=== PATIENT | female | born 1985 | race Caucasian/White ===

== ENCOUNTER 2016-07-23 15:52 | Emergency (ER) | payer OTHER ==
[~2016-07-23] VITALS: Ht 157.5 cm; Wt 107.0 kg
[~2016-07-23 15:52] MED LIST: ABILIFY10 MG PO; ABILIFY5 MG PO; ADVIL200 MG PO; ATIVAN1 MG PO; BACTRIM,SEPT1 TABLET PO; BENTYL10 MG PO; BUPROPION XL150 MG PO; BUPROPION XL300 MG PO; CABERGOLINE0.5 MG PO; CIPRO250 MG PO; CIPRO500 MG PO; COGENTIN0.5 MG PO; COLACE100 MG PO; EFFEXOR XR150 MG PO; EFFEXOR XR37.5 MG PO; EFFEXOR XR75 MG PO; ENDOCET 5-3251 EACH PO; FLOMAX0.4 MG PO; IBUPROFEN800 MG PO; KEFLEX250 MG/5 M PO; KEFLEX500 MG PO; LEXAPRO5 MG PO; LICE COMPLETE1 EACH TP; LO-DOSE ASPIRIN81 M1 PO; LORTAB 5-325 M1 EACH PO; MIRALAX17 GM PO; MOTRIN600 MG PO; MOTRIN800 MG PO; Motrin PO; NAPROSYN375 MG PO; NAPROSYN500 MG PO; NOHOMEMEDS; NORCO 5/3251 TABLET PO; NORCO 7.5/321 TABLET PO; PEN-VEE K,VEET500 MG PO; PERCOCET 5/31 TABLET PO; PRENATAL TABLE1 EAC3 PO; PYRIDIUM200 MG PO; Percocet 5/325,Endoc PO; RISPERDAL0.5 MG PO; RISPERDAL4 MG PO; RISPERIDONE4 MG PO; TRAZODONE HCL50 MG PO; TYLENOL EXTRA500 MG PO; Tylenol Extra Streng PO; ULTRACET1 TABLET PO; ULTRAM50 MG PO; VIBRAMYCIN100 MG PO; WELLBUTRIN SR150 MG PO; WELLBUTRIN XL150 MG PO; WELLBUTRIN XL300 MG PO; WELLBUTRIN75 MG PO; ZOFRAN ODT4 MG PO; ZOFRAN4 MG PO; ZOLOFT50 MG PO; ZOLPIDEM TARTRA10 MG PO
[2016-07-23 18:49] LABS: HEMATOCRIT 34.7 % (36.0-46.0); MCH 27.8 PG (29.0-34.0); MCHC 32.6 G/DL (30.0-36.0); MCV 85.3 FL (83-99); MEAN PLAT.VOLUME 9.5 uM^3 (9.5-12.4); PLATELET COUNT 322 K/uL (156-360); RBC DIS.WIDTH-CV 13.1 % (11.8-14.6); RBC DIS.WIDTH-SD 40.5 % (39-53); RED BLOOD COUNT 4.07 M/uL (3.80-5.20)
[2016-07-23] MEDS ORDERED: RISPERIDONE4 MG PO (18:58)
[2016-07-23] MEDS ORDERED: BUSPAR10 MG PO (18:58)
[2016-07-23 19:04] LABS: CHLORIDE 105 mEq/L (99-109); POTASSIUM 3.7 mEq/L (3.7-5.4); SODIUM 137 mEq/L (136-147)
[2016-07-23 19:06] LABS: GLUCOSE 94 mg/dL (70-99)
[2016-07-23 19:07] LABS: ANION GAP 8 MEQ/L (2-14)
[2016-07-23 19:08] LABS: TOTAL BILIRUBIN 0.2 mg/dL (0.0-1.0)
[2016-07-23 19:09] LABS: ALKALINE PHOSPHATASE 120 IU/L (3-129)
[2016-07-23 19:10] LABS: GFR ESTIMATE (CALCULATED) > 59 mL/min/
[2016-07-23 19:11] LABS: TROP-I INTERPRETATION NEGATIVE; TROPONIN-I < 0.01 ng/mL (0.0-0.30); UREA NITROGEN (BUN) 10 mg/dL (9-23)
[2016-07-23 19:19] LABS: QUANTITATIVE HCG < 4.0 MIU/ML
[2016-07-23 21:53] LABS: TROP-I INTERPRETATION NEGATIVE; TROPONIN-I < 0.01 ng/mL (0.0-0.30)
[2016-07-23 22:08] VITALS: BP 112/64
== END 2016-07-23 22:21 | disposition home or self-care (01) ==
LOC: EME 15:52
PROVIDERS: Physician Assistant
DX: R07.9 Chest pain, unspecified (principal); I10 Essential (primary) hypertension; Z87.442 Personal history of urinary calculi
CPT/HCPCS: 71020; 80053; 84484; 84702; 85027; 93005; 99281; 99283

== ENCOUNTER 2016-08-10 16:20 | Emergency (ER) | payer OTHER ==
[~2016-08-10] VITALS: Ht 157.5 cm; Wt 108.2 kg
[~2016-08-10 16:20] MED LIST changes: +BUSPAR10 MG PO
[2016-08-10 16:54] LABS: ADD MIUA? YES; BILIRUBIN NEGATIVE; BLOOD NEGATIVE; COLOR YELLOW ((YELLOW)); GLUCOSE (STRIP) NEGATIVE; KETONES NEGATIVE; LEUKOCYTES LARGE; NITRITE NEGATIVE; PROTEIN (STRIP) 100; SPECIFIC GRAVITY 1.019 (1.000-1.030)
[2016-08-10 16:56] LABS: INTERNAL CONTROL VALID? YES
[2016-08-10 17:35] LABS: EPITHELIAL CELLS 1+ /HPF; RED BLOOD CELLS 0-5 /HPF (0-5); WHITE BLOOD CELLS 30-40 /HPF (0-5)
[2016-08-10 17:36] LABS: AMORPHOUS PHOSPHATE CRYSTALS 1+; BACTERIA 2+ /HPF; CASTS NONE SEEN /LPF; CRYSTALS PRESENT; MUCUS NONE SEEN /LPF; UCUL ADDED? YES
[2016-08-10] MEDS ORDERED: BACTRIM,SEPT1 TABLET PO (18:24)
[2016-08-10] MEDS ORDERED: MOTRIN600 MG PO (18:24)
[2016-08-10 18:51] VITALS: BP 118/72
== END 2016-08-10 18:54 | disposition home or self-care (01) ==
LOC: EME 16:20
DX: N39.0 Urinary tract infection, site not specified (principal); I10 Essential (primary) hypertension; Z87.442 Personal history of urinary calculi
CPT/HCPCS: 81003; 84703; 87086; 99281; 99284

== ENCOUNTER 2016-08-25 17:57 | Emergency (ER) | payer OTHER ==
[~2016-08-25] VITALS: Ht 157.5 cm; Wt 90.9 kg
[2016-08-25 18:51] LABS: HEMATOCRIT 32.8 % (36.0-46.0); MCH 28.3 PG (29.0-34.0); MCHC 33.2 G/DL (30.0-36.0); MCV 85.2 FL (83-99); MEAN PLAT.VOLUME 8.9 uM^3 (9.5-12.4); PLATELET COUNT 288 K/uL (156-360); RBC DIS.WIDTH-CV 13.1 % (11.8-14.6); RBC DIS.WIDTH-SD 39.9 % (39-53); RED BLOOD COUNT 3.85 M/uL (3.80-5.20)
[2016-08-25 19:00] LABS: CHLORIDE 106 mEq/L (99-109); SODIUM 139 mEq/L (136-147)
[2016-08-25 19:02] LABS: GLUCOSE 103 mg/dL (70-99)
[2016-08-25 19:03] LABS: ANION GAP 8 MEQ/L (2-14)
[2016-08-25 19:06] LABS: GFR ESTIMATE (CALCULATED) > 59 mL/min/
[2016-08-25 19:07] LABS: UREA NITROGEN (BUN) 15 mg/dL (9-23)
[2016-08-25 19:12] LABS: TROP-I INTERPRETATION NEGATIVE; TROPONIN-I < 0.01 ng/mL (0.0-0.30)
[2016-08-25 21:07] VITALS: BP 106/64
== END 2016-08-25 21:11 | disposition home or self-care (01) ==
LOC: EME 17:57
DX: M94.0 Chondrocostal junction syndrome [Tietze] (principal)
CPT/HCPCS: 71020; 80048; 84484; 85027; 93005; 99281; 99284; J1885

== ENCOUNTER 2016-09-20 22:49 | Emergency (ER) | payer OTHER ==
[~2016-09-20] VITALS: Ht 157.5 cm; Wt 110.7 kg
[2016-09-21 00:33] VITALS: BP 100/64
[2016-09-21] MEDS ORDERED: FIORICET 50-301 EACH PO (21:00)
[2016-09-21] MEDS ORDERED: ZOFRAN ODT4 MG PO (21:00)
== END 2016-09-21 00:36 | disposition home or self-care (01) ==
LOC: EME → EDBD 22:49 → EME 09-21 00:36
DX: S06.0X0A Concussion without loss of consciousness, initial encounter (principal); M54.2 Cervicalgia; W10.9XXA Fall (on) (from) unspecified stairs and steps, initial encounter; E66.9 Obesity, unspecified; Z68.41 Body mass index [BMI] 40.0-44.9, adult
CPT/HCPCS: 70450; 72125; 99281; 99284

== ENCOUNTER 2016-09-21 18:49 | Emergency (ER) | payer OTHER ==
[~2016-09-21] VITALS: Ht 157.5 cm; Wt 108.8 kg
[2016-09-21] MEDS ORDERED: FIORICET 50-301 EACH PO (21:00)
[2016-09-21] MEDS ORDERED: ZOFRAN ODT4 MG PO (21:00)
[2016-09-21 21:08] VITALS: BP 108/44
== END 2016-09-21 21:08 | disposition home or self-care (01) ==
LOC: EME → EDBD 18:49 → EME 21:08
DX: S06.0X0A Concussion without loss of consciousness, initial encounter (principal); W10.9XXA Fall (on) (from) unspecified stairs and steps, initial encounter
CPT/HCPCS: 99281; 99284

== ENCOUNTER 2016-10-05 15:54 | Emergency (ER) | payer OTHER ==
[~2016-10-05] VITALS: Ht 157.5 cm; Wt 107.4 kg
[~2016-10-05 15:54] MED LIST changes: +FIORICET 50-301 EACH PO
[2016-10-05 17:42] LABS: MCH 26.8 PG (29.0-34.0); MCHC 31.5 G/DL (30.0-36.0); PLATELET COUNT 311 K/uL (156-360); RBC DIS.WIDTH-SD 39.8 % (39-53); WHITE BLOOD COUNT 7.9 K/uL (4.1-10.2)
[2016-10-05 17:52] LABS: CHLORIDE 109 mEq/L (99-109); POTASSIUM 4.4 mEq/L (3.7-5.4); SODIUM 141 mEq/L (136-147)
[2016-10-05 17:54] LABS: GLUCOSE 89 mg/dL (70-99)
[2016-10-05 17:55] LABS: ANION GAP 8 MEQ/L (2-14)
[2016-10-05 17:56] LABS: TOTAL BILIRUBIN 0.2 mg/dL (0.0-1.0)
[2016-10-05 17:58] LABS: ALKALINE PHOSPHATASE 121 IU/L (3-129); GFR ESTIMATE (CALCULATED) > 59 mL/min/
[2016-10-05 17:59] LABS: UREA NITROGEN (BUN) 12 mg/dL (9-23)
[2016-10-05 18:01] LABS: LIPASE 11 U/L (1.0-51.0); TROP-I INTERPRETATION NEGATIVE; TROPONIN-I < 0.01 ng/mL (0.0-0.30)
[2016-10-05 18:10] LABS: QUANTITATIVE HCG < 4.0 MIU/ML
[2016-10-05] MEDS ORDERED: ZOFRAN4 MG PO (18:17)
[2016-10-05 18:27] LABS: ADD MIUA? YES; BILIRUBIN NEGATIVE; BLOOD SMALL; COLOR YELLOW ((YELLOW)); GLUCOSE (STRIP) NEGATIVE; KETONES NEGATIVE; LEUKOCYTES MODERATE; NITRITE NEGATIVE; PROTEIN (STRIP) NEGATIVE; SPECIFIC GRAVITY 1.015 (1.000-1.030); UROBILINOGEN 0.2 MG/DL (0.2-1.0)
[2016-10-05 18:32] LABS: BACTERIA RARE /HPF; EPITHELIAL CELLS 1+ /HPF; MUCUS TRACE /LPF; RED BLOOD CELLS 0-5 /HPF (0-5); UCUL ADDED? YES
[2016-10-05 19:00] VITALS: BP 120/51
== END 2016-10-05 19:01 | disposition home or self-care (01) ==
LOC: EME 15:54
PROVIDERS: Physician Assistant Medical
DX: R11.0 Nausea (principal); E03.9 Hypothyroidism, unspecified; Z87.442 Personal history of urinary calculi
CPT/HCPCS: 71020; 80053; 81003; 83690; 84484; 84702; 85027; 87086; 93005; 99281; 99284

== ENCOUNTER 2017-02-14 16:37 | Emergency (ER) | payer OTHER ==
[~2017-02-14] VITALS: Ht 157.5 cm; Wt 115.2 kg
[2017-02-14 20:47] VITALS: BP 117/52
== END 2017-02-14 20:47 | disposition home or self-care (01) ==
LOC: EME 16:37
DX: S43.401A Unspecified sprain of right shoulder joint, initial encounter (principal); W19.XXXA Unspecified fall, initial encounter; Y93.E1 Activity, personal bathing and showering
CPT/HCPCS: 73030; 99281; 99283

== ENCOUNTER 2017-02-23 19:58 | Emergency (ER) | payer OTHER ==
[~2017-02-23] VITALS: Ht 157.5 cm; Wt 116.2 kg
[2017-02-23] MEDS ORDERED: TRAZODONE HCL50 MG PO (20:43)
[2017-02-23 20:46] LABS: HEMOGLOBIN 10.8 G/DL (11.9-15.5); MCH 27.4 PG (29.0-34.0); MCHC 32.7 G/DL (30.0-36.0); MCV 83.8 FL (83-99); PLATELET COUNT 307 K/uL (156-360); RBC DIS.WIDTH-CV 13.5 % (11.8-14.6); RBC DIS.WIDTH-SD 41.1 % (39-53); RED BLOOD COUNT 3.94 M/uL (3.80-5.20); WHITE BLOOD COUNT 7.9 K/uL (4.1-10.2)
[2017-02-23 20:59] LABS: CHLORIDE 108 mEq/L (99-109); POTASSIUM 3.7 mEq/L (3.7-5.4); SODIUM 140 mEq/L (136-147)
[2017-02-23 21:01] LABS: GLUCOSE 95 mg/dL (70-99)
[2017-02-23 21:05] LABS: CREATININE 0.8 mg/dL (0.6-1.3); GFR ESTIMATE (CALCULATED) > 59 mL/min/
[2017-02-23 21:06] LABS: UREA NITROGEN (BUN) 16 mg/dL (9-23)
[2017-02-23 21:22] LABS: TROP-I INTERPRETATION NEGATIVE; TROPONIN-I < 0.01 ng/mL (0.0-0.30)
[2017-02-23 21:29] LABS: ALBUMIN 3.9 g/dL (3.2-4.8)
[2017-02-23 21:32] LABS: TOTAL PROTEIN 6.9 g/dL (6.4-8.3)
[2017-02-23 21:33] LABS: TOTAL BILIRUBIN 0.2 mg/dL (0.0-1.0)
[2017-02-23 21:35] LABS: ALKALINE PHOSPHATASE 103 IU/L (3-129)
[2017-02-23 21:37] LABS: AST (GOT) 17 IU/L (2-34)
[2017-02-23 21:38] LABS: ALT (GPT) 11 IU/L (3-49); LIPASE 14 U/L (1.0-51.0)
[2017-02-23 22:12] VITALS: BP 133/75
== END 2017-02-23 22:13 | disposition home or self-care (01) ==
LOC: EME 19:58
PROVIDERS: Physician Assistant
DX: J10.1 Influenza due to other identified influenza virus with other respiratory manifestations (principal); R07.9 Chest pain, unspecified; R10.13 Epigastric pain; E03.9 Hypothyroidism, unspecified; F32.9 Major depressive disorder, single episode, unspecified; F41.9 Anxiety disorder, unspecified; Z87.442 Personal history of urinary calculi
CPT/HCPCS: 71046; 80048; 80076; 83690; 84484; 85027; 87502; 93005; 99281; 99284

== ENCOUNTER 2017-03-17 19:16 | Emergency (ER) | payer OTHER ==
[~2017-03-17] VITALS: Ht 157.5 cm; Wt 116.8 kg
[2017-03-17 21:11] LABS: HEMOGLOBIN 11.1 G/DL (11.9-15.5); MCH 27.5 PG (29.0-34.0); MCHC 32.6 G/DL (30.0-36.0); MCV 84.2 FL (83-99); PLATELET COUNT 286 K/uL (156-360); RBC DIS.WIDTH-CV 14.1 % (11.8-14.6); RBC DIS.WIDTH-SD 43.1 % (39-53); RED BLOOD COUNT 4.04 M/uL (3.80-5.20); WHITE BLOOD COUNT 9.4 K/uL (4.1-10.2)
[2017-03-17 21:19] LABS: CHLORIDE 104 mEq/L (99-109); POTASSIUM 3.8 mEq/L (3.7-5.4); SODIUM 139 mEq/L (136-147)
[2017-03-17 21:21] LABS: GLUCOSE 86 mg/dL (70-99); PTT 30.4 SEC (25-37)
[2017-03-17 21:24] LABS: CREATININE 0.8 mg/dL (0.6-1.3); GFR ESTIMATE (CALCULATED) > 59 mL/min/
[2017-03-17 21:25] LABS: UREA NITROGEN (BUN) 20 mg/dL (9-23)
[2017-03-17] MEDS ORDERED: NAPROXEN500 MG PO (22:46)
[2017-03-17 22:55] VITALS: BP 139/63
== END 2017-03-17 22:57 | disposition home or self-care (01) ==
LOC: EME 19:16
DX: M79.661 Pain in right lower leg (principal); E03.9 Hypothyroidism, unspecified; F32.9 Major depressive disorder, single episode, unspecified; F41.9 Anxiety disorder, unspecified
CPT/HCPCS: 71046; 80048; 85027; 85610; 85730; 93971; 99281; 99284

== ENCOUNTER 2017-03-22 20:51 | Emergency (ER) | payer OTHER ==
[~2017-03-22] VITALS: Ht 157.5 cm; Wt 118.9 kg
[~2017-03-22 20:51] MED LIST changes: +NAPROXEN500 MG PO
[2017-03-22 21:38] LABS: APPEARANCE SL.HAZY ((CLEAR)); BILIRUBIN NEGATIVE; BLOOD NEGATIVE; COLOR YELLOW ((YELLOW)); GLUCOSE (STRIP) NEGATIVE; KETONES NEGATIVE; LEUKOCYTES LARGE; NITRITE NEGATIVE; PROTEIN (STRIP) 30; SPECIFIC GRAVITY 1.023 (1.000-1.030); UROBILINOGEN 0.2 MG/DL (0.2-1.0)
[2017-03-22 21:50] LABS: HEMATOCRIT 32.2 % (36.0-46.0); HEMOGLOBIN 10.5 G/DL (11.9-15.5); MCH 27.1 PG (29.0-34.0); MCHC 32.6 G/DL (30.0-36.0); MCV 83.2 FL (83-99); PLATELET COUNT 256 K/uL (156-360); RBC DIS.WIDTH-CV 14.6 % (11.8-14.6); RBC DIS.WIDTH-SD 43.6 % (39-53); RED BLOOD COUNT 3.87 M/uL (3.80-5.20); WHITE BLOOD COUNT 8.5 K/uL (4.1-10.2)
[2017-03-22 21:53] LABS: BACTERIA RARE /HPF; EPITHELIAL CELLS 2+ /HPF; MUCUS NONE SEEN /LPF; RED BLOOD CELLS 15-20 /HPF (0-5); UCUL ADDED? YES
[2017-03-22 21:57] LABS: ALBUMIN 3.8 g/dL (3.2-4.8); CHLORIDE 105 mEq/L (99-109); POTASSIUM 3.8 mEq/L (3.7-5.4); SODIUM 137 mEq/L (136-147)
[2017-03-22 21:59] LABS: GLUCOSE 89 mg/dL (70-99)
[2017-03-22 22:00] LABS: TOTAL PROTEIN 6.7 g/dL (6.4-8.3)
[2017-03-22 22:01] LABS: TOTAL BILIRUBIN 0.2 mg/dL (0.0-1.0)
[2017-03-22 22:03] LABS: ALKALINE PHOSPHATASE 92 IU/L (3-129); CREATININE 0.8 mg/dL (0.6-1.3); GFR ESTIMATE (CALCULATED) > 59 mL/min/
[2017-03-22 22:04] LABS: UREA NITROGEN (BUN) 13 mg/dL (9-23)
[2017-03-22 22:05] LABS: AST (GOT) 16 IU/L (2-34)
[2017-03-22 22:06] LABS: ALT (GPT) 14 IU/L (3-49)
[2017-03-22 22:11] LABS: QUANTITATIVE HCG < 4.0 MIU/ML
[2017-03-22] MEDS ORDERED: ZOFRAN ODT4 MG PO (23:43)
[2017-03-22] MEDS ORDERED: PYRIDIUM200 MG PO (23:43)
[2017-03-22] MEDS ORDERED: AUGMENTIN875 MG PO (23:43)
[2017-03-23] VITALS: BP 112/66
== END 2017-03-23 00:02 | disposition home or self-care (01) ==
LOC: EME 20:51
PROVIDERS: Physician Assistant
DX: N12 Tubulo-interstitial nephritis, not specified as acute or chronic (principal); N83.201 Unspecified ovarian cyst, right side; E03.9 Hypothyroidism, unspecified; Z87.442 Personal history of urinary calculi; F32.9 Major depressive disorder, single episode, unspecified; F41.9 Anxiety disorder, unspecified
CPT/HCPCS: 74176; 80053; 81003; 84702; 85027; 87086; 99281; 99285; J0696; J1200; J2270; J2405; J2765; J7030

== ENCOUNTER 2017-03-27 16:12 | Emergency (ER) | payer OTHER ==
[~2017-03-27] VITALS: Ht 157.5 cm; Wt 117.9 kg
[~2017-03-27 16:12] MED LIST changes: +AUGMENTIN875 MG PO
[2017-03-27 17:00] LABS: APPEARANCE SL.HAZY ((CLEAR)); BILIRUBIN NEGATIVE; BLOOD SMALL; COLOR YELLOW ((YELLOW)); GLUCOSE (STRIP) NEGATIVE; KETONES NEGATIVE; LEUKOCYTES LARGE; NITRITE NEGATIVE; PROTEIN (STRIP) NEGATIVE; SPECIFIC GRAVITY 1.016 (1.000-1.030); UROBILINOGEN 0.2 MG/DL (0.2-1.0)
[2017-03-27 17:07] LABS: BACTERIA RARE /HPF; CALCIUM OXALATE CRYSTALS 1+ /HPF; EPITHELIAL CELLS 1+ /HPF; MUCUS TRACE /LPF; RED BLOOD CELLS 30-40 /HPF (0-5); UCUL ADDED? YES; WHITE BLOOD CELLS TNTC /HPF (0-5)
[2017-03-27 17:07] LABS: HEMATOCRIT 33.9 % (36.0-46.0); MCH 27.4 PG (29.0-34.0); MCHC 32.4 G/DL (30.0-36.0); MCV 84.5 FL (83-99); PLATELET COUNT 308 K/uL (156-360); RBC DIS.WIDTH-CV 14.9 % (11.8-14.6); RBC DIS.WIDTH-SD 45.2 % (39-53); RED BLOOD COUNT 4.01 M/uL (3.80-5.20); WHITE BLOOD COUNT 9.7 K/uL (4.1-10.2)
[2017-03-27 17:16] LABS: CHLORIDE 104 mEq/L (99-109); POTASSIUM 4.1 mEq/L (3.7-5.4); SODIUM 137 mEq/L (136-147)
[2017-03-27 17:17] LABS: GLUCOSE 90 mg/dL (70-99)
[2017-03-27 17:21] LABS: CREATININE 0.8 mg/dL (0.6-1.3); GFR ESTIMATE (CALCULATED) > 59 mL/min/
[2017-03-27 17:22] LABS: UREA NITROGEN (BUN) 14 mg/dL (9-23)
[2017-03-27 17:30] LABS: QUANTITATIVE HCG < 4.0 MIU/ML
[2017-03-27] MEDS ORDERED: CIPRO500 MG PO (17:36)
[2017-03-27] MEDS ORDERED: PERCOCET 5/31 TABLET PO (17:37)
[2017-03-27 17:55] VITALS: BP 112/62
== END 2017-03-27 17:56 | disposition home or self-care (01) ==
LOC: EME 16:12
PROVIDERS: Physician Assistant
DX: N39.0 Urinary tract infection, site not specified (principal); E03.9 Hypothyroidism, unspecified; F41.9 Anxiety disorder, unspecified; F32.9 Major depressive disorder, single episode, unspecified; Z87.442 Personal history of urinary calculi; Z90.49 Acquired absence of other specified parts of digestive tract
CPT/HCPCS: 80048; 81003; 84702; 85027; 87086; 99281; 99284; J1885

== ENCOUNTER 2017-03-29 16:26 | Emergency (ER) | payer OTHER ==
[~2017-03-29] VITALS: Ht 157.5 cm; Wt 117.8 kg
[2017-03-29 17:15] LABS: HEMATOCRIT 33.5 % (36.0-46.0); HEMOGLOBIN 10.7 G/DL (11.9-15.5); MCHC 31.9 G/DL (30.0-36.0); MCV 84.6 FL (83-99); PLATELET COUNT 305 K/uL (156-360); RBC DIS.WIDTH-CV 14.9 % (11.8-14.6); RED BLOOD COUNT 3.96 M/uL (3.80-5.20); WHITE BLOOD COUNT 8.7 K/uL (4.1-10.2)
[2017-03-29 17:19] LABS: APPEARANCE SL.HAZY ((CLEAR)); BILIRUBIN NEGATIVE; BLOOD NEGATIVE; COLOR YELLOW ((YELLOW)); GLUCOSE (STRIP) NEGATIVE; KETONES NEGATIVE; LEUKOCYTES LARGE; NITRITE NEGATIVE; PROTEIN (STRIP) NEGATIVE; SPECIFIC GRAVITY 1.017 (1.000-1.030); UROBILINOGEN 0.2 MG/DL (0.2-1.0)
[2017-03-29 17:24] LABS: ALBUMIN 3.9 g/dL (3.2-4.8); CHLORIDE 104 mEq/L (99-109); POTASSIUM 4.3 mEq/L (3.7-5.4); SODIUM 138 mEq/L (136-147)
[2017-03-29 17:26] LABS: GLUCOSE 89 mg/dL (70-99)
[2017-03-29 17:26] LABS: BACTERIA RARE /HPF; EPITHELIAL CELLS 1+ /HPF; MUCUS TRACE /LPF; RED BLOOD CELLS 40-50 /HPF (0-5); UCUL ADDED? YES; WHITE BLOOD CELLS TNTC /HPF (0-5)
[2017-03-29 17:30] LABS: ALKALINE PHOSPHATASE 102 IU/L (3-129); GFR ESTIMATE (CALCULATED) > 59 mL/min/
[2017-03-29 17:31] LABS: UREA NITROGEN (BUN) 13 mg/dL (9-23)
[2017-03-29 17:32] LABS: AST (GOT) 20 IU/L (2-34)
[2017-03-29 17:33] LABS: ALT (GPT) 11 IU/L (3-49)
[2017-03-29 17:34] LABS: LIPASE 9 U/L (1.0-51.0)
[2017-03-29 17:40] LABS: QUANTITATIVE HCG < 4.0 MIU/ML
[2017-03-29 18:02] LABS: CREATININE 0.8 mg/dL (0.6-1.3); TOTAL BILIRUBIN 0.3 mg/dL (0.0-1.0)
[2017-03-29 20:19] LABS: SOURCE SWAB
[2017-03-29 21:04] LABS: APPEARANCE CLEAR ((CLEAR)); BILIRUBIN NEGATIVE; BLOOD NEGATIVE; COLOR YELLOW ((YELLOW)); GLUCOSE (STRIP) NEGATIVE; KETONES NEGATIVE; LEUKOCYTES NEGATIVE; NITRITE NEGATIVE; PROTEIN (STRIP) NEGATIVE; SPECIFIC GRAVITY 1.011 (1.000-1.030); UCUL ADDED? NO; UROBILINOGEN 0.2 MG/DL (0.2-1.0)
[2017-03-29 21:51] VITALS: BP 130/67
== END 2017-03-29 21:53 | disposition home or self-care (01) ==
LOC: EME 16:26
PROVIDERS: Physician Assistant
DX: M54.5 Low back pain (principal); A59.09 Other urogenital trichomoniasis; E03.9 Hypothyroidism, unspecified; F41.9 Anxiety disorder, unspecified; F32.9 Major depressive disorder, single episode, unspecified; Z87.442 Personal history of urinary calculi
CPT/HCPCS: 80053; 81003; 83690; 84702; 85027; 87086; 87210; 87491; 87591; 99281; 99285; J0696; J1885

== ENCOUNTER 2017-04-03 12:39 | Emergency (ER) | payer OTHER ==
[~2017-04-03] VITALS: Ht 157.5 cm; Wt 116.4 kg
[2017-04-03] MEDS ORDERED: MOTRIN800 MG PO (15:25)
[2017-04-03 15:36] VITALS: BP 146/92
== END 2017-04-03 15:40 | disposition home or self-care (01) ==
LOC: EME 12:39
DX: S93.402A Sprain of unspecified ligament of left ankle, initial encounter (principal)
CPT/HCPCS: 73610; 99281; 99283

== ENCOUNTER 2017-04-22 20:00 | Emergency (ER) | payer OTHER ==
[~2017-04-22] VITALS: Ht 157.5 cm; Wt 115.5 kg
[2017-04-22 21:11] LABS: APPEARANCE CLEAR ((CLEAR)); BILIRUBIN NEGATIVE; BLOOD NEGATIVE; COLOR STRAW ((YELLOW)); GLUCOSE (STRIP) NEGATIVE; KETONES NEGATIVE; LEUKOCYTES NEGATIVE; NITRITE NEGATIVE; PROTEIN (STRIP) NEGATIVE; UROBILINOGEN 0.2 MG/DL (0.2-1.0)
[2017-04-22] MEDS ORDERED: CITRATE OF MAG296 ML PO (21:43)
[2017-04-22 21:53] VITALS: BP 118/75
== END 2017-04-22 21:59 | disposition home or self-care (01) ==
LOC: EME 20:00
PROVIDERS: Physician Assistant
DX: K59.00 Constipation, unspecified (principal); F31.9 Bipolar disorder, unspecified; F41.9 Anxiety disorder, unspecified; F32.9 Major depressive disorder, single episode, unspecified; E03.9 Hypothyroidism, unspecified; Z87.442 Personal history of urinary calculi; Z90.49 Acquired absence of other specified parts of digestive tract
CPT/HCPCS: 74018; 81003; 81025; 99281; 99283

== ENCOUNTER 2017-05-22 16:00 | Emergency (ER) | payer OTHER ==
[~2017-05-22] VITALS: Ht 157.5 cm; Wt 112.5 kg
[~2017-05-22 16:00] MED LIST changes: +CITRATE OF MAG296 ML PO
[2017-05-22 16:36] LABS: HEMATOCRIT 37.3 % (36.0-46.0); HEMOGLOBIN 12.2 G/DL (11.9-15.5); MCH 27.7 PG (29.0-34.0); MCHC 32.7 G/DL (30.0-36.0); MCV 84.8 FL (83-99); PLATELET COUNT 339 K/uL (156-360); RBC DIS.WIDTH-CV 14.6 % (11.8-14.6); RBC DIS.WIDTH-SD 45.1 % (39-53); WHITE BLOOD COUNT 7.5 K/uL (4.1-10.2)
[2017-05-22 16:47] LABS: ALBUMIN 4.2 g/dL (3.2-4.8)
[2017-05-22 16:48] LABS: CHLORIDE 107 mEq/L (99-109); POTASSIUM 4.1 mEq/L (3.7-5.4); SODIUM 141 mEq/L (136-147)
[2017-05-22 16:50] LABS: GLUCOSE 102 mg/dL (70-99)
[2017-05-22 16:52] LABS: TOTAL BILIRUBIN 0.4 mg/dL (0.0-1.0)
[2017-05-22 16:53] LABS: ALKALINE PHOSPHATASE 120 IU/L (3-129)
[2017-05-22 16:54] LABS: CREATININE 0.8 mg/dL (0.6-1.3); GFR ESTIMATE (CALCULATED) > 59 mL/min/
[2017-05-22 16:55] LABS: AST (GOT) 19 IU/L (2-34); UREA NITROGEN (BUN) 10 mg/dL (9-23)
[2017-05-22 16:56] LABS: ALT (GPT) 13 IU/L (3-49)
[2017-05-22 16:59] LABS: APPEARANCE CLOUDY ((CLEAR)); BILIRUBIN NEGATIVE; BLOOD NEGATIVE; COLOR YELLOW ((YELLOW)); GLUCOSE (STRIP) NEGATIVE; KETONES NEGATIVE; LEUKOCYTES MODERATE; NITRITE NEGATIVE; PROTEIN (STRIP) NEGATIVE; SPECIFIC GRAVITY 1.009 (1.000-1.030); UROBILINOGEN 0.2 MG/DL (0.2-1.0)
[2017-05-22 17:04] LABS: QUANTITATIVE HCG < 4.0 MIU/ML
[2017-05-22 17:18] LABS: LIPASE 13 U/L (1.0-51.0)
[2017-05-22 17:30] LABS: RED BLOOD CELLS NONE SEEN /HPF (0-5)
[2017-05-22 17:31] LABS: BACTERIA 1+ /HPF; EPITHELIAL CELLS 2+ /HPF; MUCUS NONE SEEN /LPF; UCUL ADDED? YES
[2017-05-22] MEDS ORDERED: LEXAPRO10 MG PO (17:50)
[2017-05-22] MEDS ORDERED: BUSPAR10 MG PO (17:51)
[2017-05-22] MEDS ORDERED: CABERGOLINE0.5 MG PO (17:53)
[2017-05-22] MEDS ORDERED: ENDOCET 5-3251 EACH PO (17:53)
[2017-05-22] MEDS ORDERED: LEVSIN-SL0.125 MG SL (19:06)
[2017-05-22] MEDS ORDERED: ZOFRAN ODT4 MG PO (19:06)
[2017-05-22 20:30] VITALS: BP 111/64
== END 2017-05-22 20:05 | disposition home or self-care (01) ==
LOC: EME 16:00
DX: R10.31 Right lower quadrant pain (principal); R19.7 Diarrhea, unspecified; R11.2 Nausea with vomiting, unspecified; E66.01 Morbid (severe) obesity due to excess calories; E03.9 Hypothyroidism, unspecified; F31.9 Bipolar disorder, unspecified; F32.9 Major depressive disorder, single episode, unspecified; F41.9 Anxiety disorder, unspecified; Z87.42 Personal history of other diseases of the female genital tract; Z86.79 Personal history of other diseases of the circulatory system; Z90.49 Acquired absence of other specified parts of digestive tract; Z87.442 Personal history of urinary calculi; Z98.51 Tubal ligation status; Z98.890 Other specified postprocedural states; Z91.048 Other nonmedicinal substance allergy status
CPT/HCPCS: 76856; 80053; 81003; 83690; 84702; 85027; 87086; 99281; 99284; J1885

== ENCOUNTER 2017-06-01 18:45 | Emergency (ER) | payer OTHER ==
[~2017-06-01] VITALS: Ht 157.5 cm; Wt 112.4 kg
[~2017-06-01 18:45] MED LIST changes: +LEVSIN-SL0.125 MG SL; +LEXAPRO10 MG PO
[2017-06-01 19:19] LABS: BASOPHIL (%) 0.3 % (0-1); EOSINOPHIL (%) 1.6 % (0-5); EOSINOPHIL COUNT 0.1 K/uL (0-0.3); HEMATOCRIT 34.8 % (36.0-46.0); HEMOGLOBIN 11.5 G/DL (11.9-15.5); IMMATURE GRANULOCYTE (%) 0.3 % (0.0-0.7); LYMPHOCYTE (%) 16.8 % (15-42); LYMPHOCYTE COUNT 1.3 K/uL (1.0-2.8); MCV 84.7 FL (83-99); MONOCYTE (%) 5.9 % (3-12); MONOCYTE COUNT 0.5 K/uL (0-0.8); NEUTROPHIL (%) 75.1 % (45-76); NEUTROPHIL COUNT 5.8 K/uL (1.8-6.4); PLATELET COUNT 286 K/uL (156-360); RBC DIS.WIDTH-CV 14.7 % (11.8-14.6); RBC DIS.WIDTH-SD 45.1 % (39-53); RED BLOOD COUNT 4.11 M/uL (3.80-5.20); WHITE BLOOD COUNT 7.7 K/uL (4.1-10.2)
[2017-06-01 19:27] LABS: CHLORIDE 108 mEq/L (99-109)
[2017-06-01 19:28] LABS: SODIUM 142 mEq/L (136-147)
[2017-06-01 19:29] LABS: GLUCOSE 101 mg/dL (70-99)
[2017-06-01 19:33] LABS: CREATININE 0.8 mg/dL (0.6-1.3); GFR ESTIMATE (CALCULATED) > 59 mL/min/
[2017-06-01 19:34] LABS: UREA NITROGEN (BUN) 8 mg/dL (9-23)
[2017-06-01 19:36] LABS: APPEARANCE CLEAR ((CLEAR)); BILIRUBIN NEGATIVE; BLOOD NEGATIVE; COLOR STRAW ((YELLOW)); GLUCOSE (STRIP) NEGATIVE; KETONES NEGATIVE; LEUKOCYTES NEGATIVE; NITRITE NEGATIVE; PROTEIN (STRIP) 30; UROBILINOGEN 0.2 MG/DL (0.2-1.0)
[2017-06-01 19:41] LABS: QUANTITATIVE HCG < 4.0 MIU/ML
[2017-06-01] MEDS ORDERED: ULTRAM50 MG PO (21:01)
[2017-06-01 21:15] VITALS: BP 126/56
== END 2017-06-01 21:17 | disposition home or self-care (01) ==
LOC: EME 18:45
PROVIDERS: Physician Assistant
DX: R10.9 Unspecified abdominal pain (principal); Z87.442 Personal history of urinary calculi; F32.9 Major depressive disorder, single episode, unspecified; F41.9 Anxiety disorder, unspecified; F31.9 Bipolar disorder, unspecified; E03.9 Hypothyroidism, unspecified; Z98.51 Tubal ligation status
CPT/HCPCS: 74176; 80048; 81003; 84702; 85025; 99281; 99284; J1885

== ENCOUNTER 2017-06-09 13:44 | Emergency (ER) | payer OTHER ==
[~2017-06-09] VITALS: Ht 157.5 cm; Wt 112.0 kg
[2017-06-09] MEDS ORDERED: NAPROSYN500 MG PO (17:07)
[2017-06-09 18:09] VITALS: BP 119/78
== END 2017-06-09 18:10 | disposition home or self-care (01) ==
LOC: EME 13:44
PROC: 2W3CX1Z Immobilization of Right Lower Arm using Splint (ICD-10-PCS; principal; 2017-06-09)
DX: S80.02XA Contusion of left knee, initial encounter (principal); S60.221A Contusion of right hand, initial encounter; S63.501A Unspecified sprain of right wrist, initial encounter; W18.30XA Fall on same level, unspecified, initial encounter; Y93.01 Activity, walking, marching and hiking
CPT/HCPCS: 73110; 73130; 73564; 99281; 99283

== ENCOUNTER 2017-06-22 21:29 | Emergency (ER) | payer OTHER ==
[~2017-06-22] VITALS: Ht 157.5 cm; Wt 112.0 kg
[2017-06-22 21:50] LABS: BASOPHIL (%) 0.5 % (0-1); EOSINOPHIL (%) 2.7 % (0-5); EOSINOPHIL COUNT 0.2 K/uL (0-0.3); HEMATOCRIT 33.7 % (36.0-46.0); HEMOGLOBIN 11.1 G/DL (11.9-15.5); IMMATURE GRANULOCYTE (%) 0.2 % (0.0-0.7); LYMPHOCYTE (%) 30.8 % (15-42); LYMPHOCYTE COUNT 2.5 K/uL (1.0-2.8); MCH 28.1 PG (29.0-34.0); MCHC 32.9 G/DL (30.0-36.0); MCV 85.3 FL (83-99); MONOCYTE (%) 7.5 % (3-12); MONOCYTE COUNT 0.6 K/uL (0-0.8); NEUTROPHIL (%) 58.3 % (45-76); NEUTROPHIL COUNT 4.8 K/uL (1.8-6.4); PLATELET COUNT 283 K/uL (156-360); RBC DIS.WIDTH-CV 14.7 % (11.8-14.6); RBC DIS.WIDTH-SD 45.9 % (39-53); RED BLOOD COUNT 3.95 M/uL (3.80-5.20); WHITE BLOOD COUNT 8.2 K/uL (4.1-10.2)
[2017-06-22 21:59] LABS: ALBUMIN 3.9 g/dL (3.2-4.8); CHLORIDE 107 mEq/L (99-109); POTASSIUM 3.9 mEq/L (3.7-5.4); SODIUM 139 mEq/L (136-147)
[2017-06-22 22:02] LABS: GLUCOSE 87 mg/dL (70-99); TOTAL PROTEIN 6.4 g/dL (6.4-8.3)
[2017-06-22 22:04] LABS: TOTAL BILIRUBIN 0.2 mg/dL (0.0-1.0)
[2017-06-22 22:05] LABS: ALKALINE PHOSPHATASE 101 IU/L (3-129); CREATININE 0.7 mg/dL (0.6-1.3); GFR ESTIMATE (CALCULATED) > 59 mL/min/
[2017-06-22 22:06] LABS: UREA NITROGEN (BUN) 18 mg/dL (9-23)
[2017-06-22 22:07] LABS: AST (GOT) 13 IU/L (2-34)
[2017-06-22 22:08] LABS: ALT (GPT) 10 IU/L (3-49)
[2017-06-22 22:54] LABS: APPEARANCE CLEAR ((CLEAR)); BILIRUBIN NEGATIVE; BLOOD NEGATIVE; COLOR YELLOW ((YELLOW)); GLUCOSE (STRIP) NEGATIVE; KETONES NEGATIVE; LEUKOCYTES NEGATIVE; NITRITE NEGATIVE; PROTEIN (STRIP) NEGATIVE; SPECIFIC GRAVITY 1.015 (1.000-1.030); UCUL ADDED? NO; UROBILINOGEN 0.2 MG/DL (0.2-1.0)
[2017-06-22] MEDS ORDERED: ZOFRAN ODT4 MG PO (23:21)
[2017-06-22 23:51] VITALS: BP 142/83
== END 2017-06-22 23:52 | disposition home or self-care (01) ==
LOC: EME → EDBD 21:29 → EME 21:29
PROVIDERS: Emergency Medicine
DX: R10.30 Lower abdominal pain, unspecified (principal); G43.909 Migraine, unspecified, not intractable, without status migrainosus; F41.9 Anxiety disorder, unspecified; F32.9 Major depressive disorder, single episode, unspecified; F31.9 Bipolar disorder, unspecified; Z87.442 Personal history of urinary calculi; Z91.09 Other allergy status, other than to drugs and biological substances
CPT/HCPCS: 80053; 81003; 81025; 85025; 99281; 99284; J1885; J7120

== ENCOUNTER 2017-07-01 00:48 | Emergency (ER) | payer OTHER ==
[~2017-07-01] VITALS: Ht 157.5 cm; Wt 113.3 kg
[2017-07-01] MEDS ORDERED: MOTRIN800 MG PO (01:48)
[2017-07-01 02:28] VITALS: BP 127/81
== END 2017-07-01 02:29 | disposition home or self-care (01) ==
LOC: EME 00:48
DX: S90.121A Contusion of right lesser toe(s) without damage to nail, initial encounter (principal); S93.504A Unspecified sprain of right lesser toe(s), initial encounter; M77.31 Calcaneal spur, right foot; W22.8XXA Striking against or struck by other objects, initial encounter
CPT/HCPCS: 73630; 99281; 99284

== ENCOUNTER 2017-08-19 20:17 | Emergency (ER) | payer OTHER ==
[~2017-08-19] VITALS: Ht 157.5 cm; Wt 116.0 kg
[2017-08-19 20:26] VITALS: BP 114/81
[2017-08-19] MEDS ORDERED: FLEXERIL10 MG PO (22:19)
== END 2017-08-19 22:24 | disposition home or self-care (01) ==
LOC: EME 20:17
DX: M54.9 Dorsalgia, unspecified (principal); G89.29 Other chronic pain; Z90.49 Acquired absence of other specified parts of digestive tract; Z91.040 Latex allergy status; Z88.8 Allergy status to other drugs, medicaments and biological substances
CPT/HCPCS: 99281; 99283

== ENCOUNTER 2017-08-29 17:18 | Emergency (ER) | payer OTHER ==
[~2017-08-29] VITALS: Ht 157.5 cm; Wt 114.5 kg
[~2017-08-29 17:18] MED LIST changes: +FLEXERIL10 MG PO
[2017-08-29] MEDS ORDERED: ULTRAM50 MG PO (19:08)
[2017-08-29] MEDS ORDERED: FLEXERIL10 MG PO (19:08)
[2017-08-29 19:22] VITALS: BP 131/61
== END 2017-08-29 19:23 | disposition home or self-care (01) ==
LOC: EME 17:18
DX: R20.2 Paresthesia of skin (principal); M25.562 Pain in left knee; Z98.890 Other specified postprocedural states; F32.9 Major depressive disorder, single episode, unspecified; F41.9 Anxiety disorder, unspecified; Z88.6 Allergy status to analgesic agent
CPT/HCPCS: 99281; 99283

== ENCOUNTER 2017-09-04 00:58 | Emergency (ER) | payer OTHER ==
[~2017-09-04] VITALS: Ht 157.5 cm; Wt 114.6 kg
[2017-09-04 01:52] LABS: APPEARANCE SL.HAZY ((CLEAR)); BILIRUBIN NEGATIVE; BLOOD NEGATIVE; COLOR STRAW ((YELLOW)); GLUCOSE (STRIP) NEGATIVE; KETONES NEGATIVE; LEUKOCYTES SMALL; NITRITE NEGATIVE; PROTEIN (STRIP) NEGATIVE; SPECIFIC GRAVITY 1.005 (1.000-1.030); UROBILINOGEN 0.2 MG/DL (0.2-1.0)
[2017-09-04 01:55] LABS: HEMOGLOBIN 11.1 G/DL (11.9-15.5); MCH 28.8 PG (29.0-34.0); MCHC 33.6 G/DL (30.0-36.0); MCV 85.5 FL (83-99); PLATELET COUNT 264 K/uL (156-360); RBC DIS.WIDTH-CV 13.7 % (11.8-14.6); RBC DIS.WIDTH-SD 42.5 % (39-53); RED BLOOD COUNT 3.86 M/uL (3.80-5.20)
[2017-09-04 01:59] LABS: BACTERIA RARE /HPF; EPITHELIAL CELLS 1+ /HPF; MUCUS TRACE /LPF; RED BLOOD CELLS 0-5 /HPF (0-5); WHITE BLOOD CELLS 0-5 /HPF (0-5)
[2017-09-04 02:08] LABS: ALBUMIN 3.8 g/dL (3.2-4.8); CHLORIDE 104 mEq/L (99-109); POTASSIUM 3.9 mEq/L (3.7-5.4); SODIUM 139 mEq/L (136-147)
[2017-09-04 02:10] LABS: GLUCOSE 135 mg/dL (70-99)
[2017-09-04 02:11] LABS: TOTAL PROTEIN 6.4 g/dL (6.4-8.3)
[2017-09-04 02:12] LABS: TOTAL BILIRUBIN 0.2 mg/dL (0.0-1.0)
[2017-09-04 02:14] LABS: ALKALINE PHOSPHATASE 112 IU/L (3-129); CREATININE 0.8 mg/dL (0.6-1.3); GFR ESTIMATE (CALCULATED) > 59 mL/min/
[2017-09-04 02:15] LABS: UREA NITROGEN (BUN) 12 mg/dL (9-23)
[2017-09-04 02:16] LABS: AST (GOT) 11 IU/L (2-34); DIRECT BILIRUBIN 0.1 mg/dL (0.0-0.3)
[2017-09-04 02:17] LABS: ALT (GPT) 8 IU/L (3-49); LIPASE 133 U/L (1.0-51.0)
[2017-09-04 02:25] LABS: QUANTITATIVE HCG < 4.0 MIU/ML
[2017-09-04] MEDS ORDERED: BENTYL20 MG PO (02:33)
[2017-09-04] MEDS ORDERED: ZOFRAN ODT8 MG PO (02:33)
[2017-09-04 03:52] VITALS: BP 128/70
== END 2017-09-04 03:53 | disposition home or self-care (01) ==
LOC: EME 00:58
PROVIDERS: Physician Assistant
DX: K85.90 Acute pancreatitis without necrosis or infection, unspecified (principal); R04.0 Epistaxis; E66.01 Morbid (severe) obesity due to excess calories; Z68.42 Body mass index [BMI] 45.0-49.9, adult; F32.9 Major depressive disorder, single episode, unspecified; Z87.442 Personal history of urinary calculi; F41.9 Anxiety disorder, unspecified; Z90.49 Acquired absence of other specified parts of digestive tract; Z88.6 Allergy status to analgesic agent
CPT/HCPCS: 80048; 80076; 81003; 83690; 84702; 85027; 99281; 99284; J0500

== ENCOUNTER 2017-09-06 19:44 | Emergency (ER) | payer OTHER ==
[~2017-09-06] VITALS: Ht 157.5 cm; Wt 113.6 kg
[~2017-09-06 19:44] MED LIST changes: +BENTYL20 MG PO; +ZOFRAN ODT8 MG PO
[2017-09-06 20:32] LABS: BASOPHIL (%) 0.4 % (0-1); EOSINOPHIL (%) 2.5 % (0-5); EOSINOPHIL COUNT 0.2 K/uL (0-0.3); HEMATOCRIT 32.8 % (36.0-46.0); IMMATURE GRANULOCYTE (%) 0.3 % (0.0-0.7); LYMPHOCYTE (%) 27.1 % (15-42); LYMPHOCYTE COUNT 2.4 K/uL (1.0-2.8); MCH 28.9 PG (29.0-34.0); MCHC 33.5 G/DL (30.0-36.0); MCV 86.3 FL (83-99); MONOCYTE COUNT 0.6 K/uL (0-0.8); NEUTROPHIL (%) 62.7 % (45-76); NEUTROPHIL COUNT 5.6 K/uL (1.8-6.4); PLATELET COUNT 266 K/uL (156-360); RBC DIS.WIDTH-CV 13.6 % (11.8-14.6); RBC DIS.WIDTH-SD 42.6 % (39-53); WHITE BLOOD COUNT 8.9 K/uL (4.1-10.2)
[2017-09-06 20:44] LABS: ALBUMIN 3.7 g/dL (3.2-4.8); CHLORIDE 106 mEq/L (99-109); SODIUM 140 mEq/L (136-147)
[2017-09-06 20:45] LABS: MAGNESIUM 2.3 mg/dL (1.3-2.7)
[2017-09-06 20:47] LABS: GLUCOSE 108 mg/dL (70-99); TOTAL PROTEIN 6.2 g/dL (6.4-8.3)
[2017-09-06 20:48] LABS: TOTAL BILIRUBIN 0.2 mg/dL (0.0-1.0)
[2017-09-06 20:49] LABS: SERUM ETHYL ALCOHOL < 10 mg/dL
[2017-09-06 20:50] LABS: ALKALINE PHOSPHATASE 113 IU/L (3-129); CREATININE 0.8 mg/dL (0.6-1.3); GFR ESTIMATE (CALCULATED) > 59 mL/min/
[2017-09-06 20:51] LABS: UREA NITROGEN (BUN) 15 mg/dL (9-23)
[2017-09-06 20:52] LABS: AST (GOT) 15 IU/L (2-34)
[2017-09-06 20:53] LABS: ALT (GPT) 10 IU/L (3-49)
[2017-09-06 20:54] LABS: LIPASE 18 U/L (1.0-51.0)
[2017-09-06 22:56] LABS: APPEARANCE CLEAR ((CLEAR)); BILIRUBIN NEGATIVE; BLOOD NEGATIVE; COLOR YELLOW ((YELLOW)); GLUCOSE (STRIP) NEGATIVE; KETONES NEGATIVE; LEUKOCYTES NEGATIVE; NITRITE NEGATIVE; PROTEIN (STRIP) NEGATIVE; SPECIFIC GRAVITY 1.044 (1.000-1.030); UCUL ADDED? NO; UROBILINOGEN 0.2 MG/DL (0.2-1.0)
[2017-09-06] MEDS ORDERED: ZANTAC150 MG PO (23:13)
[2017-09-07 00:15] VITALS: BP 101/70
[2017-09-08] MEDS ORDERED: MOTRIN800 MG PO (20:32)
== END 2017-09-07 00:15 | disposition home or self-care (01) ==
LOC: EME → EDBD 19:44 → EME 19:44
PROVIDERS: Emergency Medicine
DX: R10.31 Right lower quadrant pain (principal); R10.32 Left lower quadrant pain; R11.2 Nausea with vomiting, unspecified; K42.9 Umbilical hernia without obstruction or gangrene; K57.30 Diverticulosis of large intestine without perforation or abscess without bleeding; Z90.49 Acquired absence of other specified parts of digestive tract
CPT/HCPCS: 74177; 80053; 81003; 83690; 83735; 85025; 99281; 99285; G0480; J1885; J2405; J7040

== ENCOUNTER 2017-09-08 19:25 | Emergency (ER) | payer OTHER ==
[~2017-09-08] VITALS: Ht 157.5 cm; Wt 114.4 kg
[~2017-09-08 19:25] MED LIST changes: +ZANTAC150 MG PO
[2017-09-08 20:04] LABS: HEMATOCRIT 33.9 % (36.0-46.0); HEMOGLOBIN 11.2 G/DL (11.9-15.5); MCH 28.4 PG (29.0-34.0); MCV 85.8 FL (83-99); PLATELET COUNT 268 K/uL (156-360); RBC DIS.WIDTH-CV 13.4 % (11.8-14.6); RBC DIS.WIDTH-SD 42.1 % (39-53); RED BLOOD COUNT 3.95 M/uL (3.80-5.20); WHITE BLOOD COUNT 8.1 K/uL (4.1-10.2)
[2017-09-08 20:12] LABS: CHLORIDE 106 mEq/L (99-109); POTASSIUM 3.8 mEq/L (3.7-5.4); SODIUM 140 mEq/L (136-147)
[2017-09-08 20:14] LABS: GLUCOSE 97 mg/dL (70-99)
[2017-09-08 20:18] LABS: CREATININE 0.9 mg/dL (0.6-1.3); GFR ESTIMATE (CALCULATED) > 59 mL/min/
[2017-09-08 20:19] LABS: UREA NITROGEN (BUN) 10 mg/dL (9-23)
[2017-09-08 20:25] LABS: APPEARANCE CLEAR ((CLEAR)); BILIRUBIN NEGATIVE; BLOOD LARGE; COLOR YELLOW ((YELLOW)); GLUCOSE (STRIP) NEGATIVE; KETONES NEGATIVE; LEUKOCYTES SMALL; NITRITE NEGATIVE; PROTEIN (STRIP) 30; SPECIFIC GRAVITY 1.006 (1.000-1.030); UROBILINOGEN 0.2 MG/DL (0.2-1.0)
[2017-09-08 20:26] LABS: QUANTITATIVE HCG < 4.0 MIU/ML
[2017-09-08 20:29] LABS: BACTERIA RARE /HPF; EPITHELIAL CELLS 1+ /HPF; MUCUS TRACE /LPF; RED BLOOD CELLS 20-30 /HPF (0-5); UCUL ADDED? YES
[2017-09-08] MEDS ORDERED: MOTRIN800 MG PO (20:32)
[2017-09-08 21:13] VITALS: BP 119/88
== END 2017-09-08 21:13 | disposition home or self-care (01) ==
LOC: EME 19:25
PROVIDERS: Nurse Practitioner Family
DX: N93.9 Abnormal uterine and vaginal bleeding, unspecified (principal); R31.9 Hematuria, unspecified; F32.9 Major depressive disorder, single episode, unspecified; F31.9 Bipolar disorder, unspecified; F41.9 Anxiety disorder, unspecified; Z87.442 Personal history of urinary calculi; Z90.49 Acquired absence of other specified parts of digestive tract; Z88.8 Allergy status to other drugs, medicaments and biological substances
CPT/HCPCS: 80048; 81003; 84702; 85027; 87086; 99281; 99284

== ENCOUNTER 2017-10-03 19:39 | Emergency (ER) | payer OTHER ==
[~2017-10-03] VITALS: Ht 157.5 cm; Wt 114.2 kg
[2017-10-03 19:50] VITALS: BP 142/83
[2017-10-03] MEDS ORDERED: ULTRAM50 MG PO (22:51)
== END 2017-10-03 23:22 | disposition home or self-care (01) ==
LOC: EME 19:39
DX: S40.012A Contusion of left shoulder, initial encounter (principal); W22.09XA Striking against other stationary object, initial encounter; Y92.003 Bedroom of unspecified non-institutional (private) residence as the place of occurrence of the external cause; Z88.6 Allergy status to analgesic agent; Z91.09 Other allergy status, other than to drugs and biological substances
CPT/HCPCS: 73030; 99281; 99283

== ENCOUNTER 2017-10-15 18:25 | Emergency (ER) | payer OTHER ==
[~2017-10-15] VITALS: Ht 157.5 cm; Wt 115.2 kg
[2017-10-15 19:22] LABS: APPEARANCE CLEAR ((CLEAR)); BILIRUBIN NEGATIVE; BLOOD LARGE; COLOR STRAW ((YELLOW)); GLUCOSE (STRIP) NEGATIVE; KETONES NEGATIVE; LEUKOCYTES NEGATIVE; NITRITE NEGATIVE; PROTEIN (STRIP) NEGATIVE; SPECIFIC GRAVITY 1.011 (1.000-1.030); UROBILINOGEN 0.2 MG/DL (0.2-1.0)
[2017-10-15 19:28] LABS: BACTERIA NONE SEEN /HPF; EPITHELIAL CELLS 1+ /HPF; MUCUS NONE SEEN /LPF; RED BLOOD CELLS 0-5 /HPF (0-5); UCUL ADDED? NO; WHITE BLOOD CELLS 0-5 /HPF (0-5)
[2017-10-15 19:39] LABS: HEMATOCRIT 37.1 % (36.0-46.0); HEMOGLOBIN 12.3 G/DL (11.9-15.5); MCH 29.3 PG (29.0-34.0); MCHC 33.2 G/DL (30.0-36.0); MCV 88.3 FL (83-99); PLATELET COUNT 308 K/uL (156-360); RBC DIS.WIDTH-CV 13.7 % (11.8-14.6); RBC DIS.WIDTH-SD 44.3 % (39-53); WHITE BLOOD COUNT 7.8 K/uL (4.1-10.2)
[2017-10-15 19:46] LABS: CHLORIDE 108 mEq/L (99-109); POTASSIUM 4.1 mEq/L (3.7-5.4); SODIUM 140 mEq/L (136-147)
[2017-10-15 19:49] LABS: GLUCOSE 84 mg/dL (70-99); TOTAL PROTEIN 6.9 g/dL (6.4-8.3)
[2017-10-15 19:51] LABS: TOTAL BILIRUBIN 0.2 mg/dL (0.0-1.0)
[2017-10-15 19:52] LABS: ALKALINE PHOSPHATASE 91 IU/L (3-129); CREATININE 0.9 mg/dL (0.6-1.3); GFR ESTIMATE (CALCULATED) > 59 mL/min/
[2017-10-15 19:54] LABS: AST (GOT) 18 IU/L (2-34); UREA NITROGEN (BUN) 18 mg/dL (9-23)
[2017-10-15 19:55] LABS: ALT (GPT) 13 IU/L (3-49)
[2017-10-15 20:05] LABS: QUANTITATIVE HCG < 4.0 MIU/ML
[2017-10-15 21:11] LABS: LIPASE 19 U/L (1.0-51.0)
[2017-10-15] MEDS ORDERED: REGLAN10 MG PO (22:22)
[2017-10-15] MEDS ORDERED: IMITREX50 MG PO (22:22)
[2017-10-15 22:49] VITALS: BP 114/78
== END 2017-10-15 22:51 | disposition home or self-care (01) ==
LOC: EME 18:25
DX: G43.009 Migraine without aura, not intractable, without status migrainosus (principal); F31.9 Bipolar disorder, unspecified; F32.9 Major depressive disorder, single episode, unspecified; F41.9 Anxiety disorder, unspecified; Z87.442 Personal history of urinary calculi; Z90.49 Acquired absence of other specified parts of digestive tract; Z88.8 Allergy status to other drugs, medicaments and biological substances
CPT/HCPCS: 80053; 81003; 83690; 84702; 85027; 99281; 99284; J1200; J1885; J2765; J7030